=== PATIENT | male | born 1950 | race Caucasian/White ===

== ENCOUNTER 2018-02-02 04:27 | Emergency (ER) | payer SELFPAY ==
[~2018-02-02] VITALS: Ht 185.4 cm; Wt 117.9 kg
[~2018-02-02 04:27] MED LIST: CIPROFLOXACIN500 MG PO; DAYPRO600 M1 PO; FLOMAX0.4 MG PO; MEDROL DOSEPAK4 MG PO; PERCOCET 325 MG1 TA5 PO; ROBAXIN750 MG PO; SIMVASTATIN10 MG PO; VICODIN 500 MG-1 TAB PO; VICODIN ES 7501 TA1 PO; ZOCOR40 MG PO
[2018-02-02 05:12] LABS: BASO % 0.4 % (0.0-1.0); EOS # 0.1 10*3/uL (0.0-0.4); EOS % 1.4 % (1.0-4.0); HEMATOCRIT 43.5 % (42.0-52.0); HEMOGLOBIN 14.7 g/dl (14.0-18.0); LYMPH # 1.4 10*3/uL (1.3-4.4); LYMPH % 18.4 % (27.0-41.0); MEAN CORPUSCULAR HGB 29.4 pg (27.0-31.0); MEAN CORPUSCULAR HGB CONC 33.8 g/dl (33.0-37.0); MEAN PLATELET VOLUME 9.8 fl (9.6-12.3); MONO # 0.7 10*3/uL (0.1-1.0); MONO % 9.5 % (3.0-9.0); NEUT # 5.4 10*3/uL (2.3-7.9); PLATELET COUNT AUTOMATED 215 10*3/uL (130-400); RED CELL DISTRI WIDTH 12.9 % (0-14.5); WHITE BLOOD COUNT 7.8 10*3/uL (4.8-10.8)
[2018-02-02 05:27] LABS: ALBUMIN 3.8 gm/dl (3.1-4.5); ALKALINE PHOSPHATASE 61 U/L (45-117); BUN 15 mg/dl (7-24); CHLORIDE 101 mmol/L (98-107); CREATININE 1.07 mg/dL (0.70-1.30); POTASSIUM 3.4 mmol/L (3.5-5.1); SGOT/AST 20 IU/L (3-35); SGPT/ALT 19 U/L (12-78); SODIUM 138 mmol/L (136-145); TOTAL PROTEIN 7.6 gm/dL (6.4-8.2)
[2018-02-02] MEDS ORDERED: KETOROLAC10 MG PO (05:35)
[2018-02-02 05:40] LABS: BILIRUBIN NEGATIVE (NEGATIVE); BLOOD 3+ (NEGATIVE); CLARITY SL CLOUDY (CLEAR); COLOR YELLOW (YELLOW); GLUCOSE NEGATIVE (NEGATIVE); KETONE 1+ (NEGATIVE); LEUKO ESTERASE NEGATIVE (NEGATIVE); NITRITE NEGATIVE (NEGATIVE); SPECIFIC GRAVITY 1.025 (1.005-1.030)
[2018-02-02 05:49] LABS: RBC 41-50 rbc/hpf (0-2)
== END 2018-02-02 06:33 | disposition home or self-care (01) ==
LOC: ED 04:27
PROVIDERS: Student in an Organized Health Care Education/Training Program
DX: N20.1 Calculus of ureter (principal); Z79.899 Other long term (current) drug therapy

== ENCOUNTER 2018-02-23 04:35 | Emergency (ER) | payer SELFPAY ==
[~2018-02-23] VITALS: Ht 185.4 cm; Wt 113.4 kg
[~2018-02-23 04:35] MED LIST changes: +KETOROLAC10 MG PO
[2018-02-23] MEDS ORDERED: PANTOPRAZOLE SO40 MG PO (05:00)
[2018-02-23 05:37] LABS: BASO % 0.3 % (0.0-1.0); EOS # 0.1 10*3/uL (0.0-0.4); EOS % 1.1 % (1.0-4.0); LYMPH # 1.2 10*3/uL (1.3-4.4); LYMPH % 12.6 % (27.0-41.0); MEAN CELL VOLUME 88.2 fl (80.0-94.0); MEAN CORPUSCULAR HGB 29.4 pg (27.0-31.0); MEAN CORPUSCULAR HGB CONC 33.3 g/dl (33.0-37.0); MEAN PLATELET VOLUME 10.1 fl (9.6-12.3); MONO # 1.4 10*3/uL (0.1-1.0); MONO % 14.8 % (3.0-9.0); NEUT # 6.7 10*3/uL (2.3-7.9); PLATELET COUNT AUTOMATED 219 10*3/uL (130-400); RED BLOOD COUNT 4.76 10*6/uL (4.50-5.90); WHITE BLOOD COUNT 9.5 10*3/uL (4.8-10.8)
[2018-02-23 05:53] LABS: ALKALINE PHOSPHATASE 54 U/L (45-117); BUN 20 mg/dl (7-24); CHLORIDE 106 mmol/L (98-107); CREATININE 1.37 mg/dL (0.70-1.30); POTASSIUM 3.6 mmol/L (3.5-5.1); SGOT/AST 43 IU/L (3-35); SGPT/ALT 21 U/L (12-78); SODIUM 141 mmol/L (136-145); TOTAL PROTEIN 7.3 gm/dL (6.4-8.2)
[2018-02-23 08:43] LABS: BILIRUBIN NEGATIVE (NEGATIVE); BLOOD 2+ (NEGATIVE); CLARITY SL CLOUDY (CLEAR); COLOR YELLOW (YELLOW); GLUCOSE NEGATIVE (NEGATIVE); KETONE 1+ (NEGATIVE); LEUKO ESTERASE NEGATIVE (NEGATIVE); NITRITE NEGATIVE (NEGATIVE); SPECIFIC GRAVITY >= 1.030 (1.005-1.030)
[2018-02-23 09:07] LABS: BACTERIA 1+; CALCIUM OXALATE CRYSTALS 2+; MUCOUS 1+; RBC 31-40 rbc/hpf (0-2)
== END 2018-02-23 08:55 | disposition home or self-care (01) ==
LOC: ED 04:35
PROVIDERS: Emergency Medicine
DX: N20.0 Calculus of kidney (principal); N17.9 Acute kidney failure, unspecified; N13.30 Unspecified hydronephrosis; N20.1 Calculus of ureter; Z98.890 Other specified postprocedural states; Z79.899 Other long term (current) drug therapy